=== PATIENT | female | born 1960 | race Caucasian/White ===

== ENCOUNTER 2023-07-17 02:02 | Emergency (ER) | payer BC, OTHER ==
--- NOTE | 2023-07-17 02:17 | ERPHSYRPT ---
- History of Present Illness Time Seen by Provider: 07/17/23 02:16 Source: patient, family Exam Limitations: no limitations Physician History: This is a 63-year-old white female patient who presents with bilateral leg cramping that began approximately 9 PM in the evening of 07/16/2023. Incidentally, she also notes that her blood sugar was measured approximately 444 and patient took additional subcutaneous insulin dose for sliding scale coverage. A repeat Accu-Chek at home measured the blood sugar level approximately 190 prior to arrival. She continues having the cramping and therefore she came to the emergency department with a family member. Her leg cramping has subsided just prior to arrival and even improved more while in the emergency department. Patient denies any type of trauma to her bilateral lower extremities. Patient has had this sensation in the past. She has never had it evaluated because of the symptoms being short-lived. However, this past evening the symptoms persisted longer than what she had experienced in the past. Patient was started on steroids to treat a bronchitis. Occurred: other (Last evening on 07/16/2023) Quality: cramping (Bilateral below the knee) Severity of Pain-Max: mild (To moderate) Severity of Pain-Current: none Lower Extremities Pain: other: bilateral (Below the knee) Modifying Factors: Improves With: other (Symptoms resolved on their own) Associated Symptoms: other (Cramping was present and interfering with her ability to walk) Allergies/Adverse Reactions: levofloxacin [From Levaquin] Allergy (Intermediate, Verified 07/17/23 02:14) Swelling of Joints Penicillins Allergy (Unknown, Verified 07/17/23 02:14) Rash Travel Risk - International Travel Have you traveled outside of the country in past 3 weeks: No - Emerging Infectious Disease Are you exhibiting symptoms associated with any current EIDs: No - Review of Systems Constitutional: No Symptoms Eyes: No Symptoms Ears, Nose, & Throat: No Symptoms Respiratory: No Symptoms Cardiac: No Symptoms Abdominal/Gastrointestinal: No Symptoms Genitourinary Symptoms: No Symptoms Musculoskeletal: Other (Cramping feeling bilateral lower extremities below the knee) Skin: No Symptoms Neurological: No Symptoms Psychological: No Symptoms Endocrine: No Symptoms Hematologic/Lymphatic: No Symptoms Immunological/Allergic: No Symptoms All Other Systems: Reviewed and Negative - Past Medical History Pertinent Past Medical History: Yes Endocrine Medical History: Diabetes Type I - Nursing Vital Signs Nursing Vital Signs: Initial Vital Signs Pulse Rate 83 07/17/23 02:13 Respiratory Rate 20 07/17/23 02:13 Blood Pressure 116/82 07/17/23 02:13 O2 Sat by Pulse Oximetry 97 07/17/23 02:13 Pain Scale Pain Intensity 2 - Physical Exam General Appearance: no apparent distress, alert, anxiety, obese Eyes, Ears, Nose, Throat Exam: normal ENT inspection, moist mucous membranes Neck Exam: normal inspection, non-tender, supple, full range of motion Cardiovascular/Respiratory Exam: chest non-tender, no respiratory distress Gastrointestinal/Abdominal Exam: non-tender Back Exam: normal inspection, normal range of motion, No CVA tenderness, No vertebral tenderness Hips Exam: bilateral: non-tender, normal inspection, normal range of motion, no evidence of injury Legs Exam: right leg: other (Bilateral lower extremities below the knee shows no evidence of infection. Currently no pain) Knees Exam: bilateral knee: non-tender, normal inspection, normal range of motion, no evidence of injury Ankle Exam: bilateral ankle: non-tender, normal inspection, normal range of motion, no evidence of injury Foot Exam: bilateral foot: non-tender, normal inspection, normal range of motion, no evidence of injury Neuro/Tendon Exam: normal sensation, normal motor functions, normal tendon functions, no evidence tendon injury Mental Status Exam: alert, oriented x 3, cooperative Skin Exam: normal color, warm, dry SpO2 Interpretation: normal O2 Delivery: Room Air - Course Nursing assessment & vital signs reviewed: Yes Ordered Tests: Active Orders 24 hr Category Date Time Status BMP Stat Lab 07/17/23 02:42 Completed CBC W DIFF Stat Lab 07/17/23 02:43 Completed D-DIMER QUANTITATIVE Stat Lab 07/17/23 02:42 Completed MAG [MAGNESIUM] Stat Lab 07/17/23 02:42 Completed Lab/Rad Data: Laboratory Result Diagrams 07/17/23 02:43 07/17/23 02:42 Laboratory Results 07/17/23 07/17/23 07/17/23 Range/Units 02:43 02:42 02:42 WBC 15.4 H (4.0-10.5) x10^3/uL RBC 4.73 (4.1-5.4) x10^6/uL Hgb 14.5 (12.0-16.0) g/dL Hct 42.2 (35-47) % MCV 89.2 (78-100) fL MCH 30.7 (26-32) pg MCHC 34.4 (32-36) g/dL RDW 13.5 (11.5-14.0) % Plt Count 284 (150-450) x10^3/uL MPV 10.9 (7.5-11.0) fL Gran % 63.2 (36.0-66.0) % Immature Gran % (Auto) 0.9 H (0.00-0.4) % Nucleat RBC Rel Count 0.0 (0.00-0.1) % Eos # (Auto) 0.15 (0-0.5) x10^3/uL Immature Gran # (Auto) 0.14 H (0.00-0.03) x10^3u/L Absolute Lymphs (auto) 4.04 (1.0-4.6) x10^3/uL Absolute Monos (auto) 1.27 (0.0-1.3) x10^3/uL Absolute Nucleated RBC 0.00 (0.00-0.01) x10^3u/L Lymphocytes % 26.3 (24.0-44.0) % Monocytes % 8.3 (0.0-12.0) % Eosinophils % 1.0 (0.00-5.0) % Basophils % 0.3 (0.0-0.4) % Absolute Granulocytes 9.73 H (1.4-6.9) x10^3/uL Basophils # 0.05 (0-0.4) x10^3/uL D-Dimer 0.38 (0.0-0.50) mg/L Sodium (135-145) mmol/L Potassium (3.5-5.1) mmol/L Chloride (98-107) mmol/L Carbon Dioxide (22-30) mmol/L Anion Gap (5-15) MEQ/L BUN (7-17) mg/dL Creatinine (0.52-1.04) mg/dL Estimated GFR ML/MIN Glucose (74-106) mg/dL Calcium (8.4-10.2) mg/dL Magnesium 1.7 (1.6-2.3) mg/dL 07/17/23 Range/Units 02:42 WBC (4.0-10.5) x10^3/uL RBC (4.1-5.4) x10^6/uL Hgb (12.0-16.0) g/dL Hct (35-47) % MCV (78-100) fL MCH (26-32) pg MCHC (32-36) g/dL RDW (11.5-14.0) % Plt Count (150-450) x10^3/uL MPV (7.5-11.0) fL Gran % (36.0-66.0) % Immature Gran % (Auto) (0.00-0.4) % Nucleat RBC Rel Count (0.00-0.1) % Eos # (Auto) (0-0.5) x10^3/uL Immature Gran # (Auto) (0.00-0.03) x10^3u/L Absolute Lymphs (auto) (1.0-4.6) x10^3/uL Absolute Monos (auto) (0.0-1.3) x10^3/uL Absolute Nucleated RBC (0.00-0.01) x10^3u/L Lymphocytes % (24.0-44.0) % Monocytes % (0.0-12.0) % Eosinophils % (0.00-5.0) % Basophils % (0.0-0.4) % Absolute Granulocytes (1.4-6.9) x10^3/uL Basophils # (0-0.4) x10^3/uL D-Dimer (0.0-0.50) mg/L Sodium 131 L (135-145) mmol/L Potassium 3.6 (3.5-5.1) mmol/L Chloride 95 L (98-107) mmol/L Carbon Dioxide 24 (22-30) mmol/L Anion Gap 15.5 H (5-15) MEQ/L BUN 39 H (7-17) mg/dL Creatinine 1.66 H (0.52-1.04) mg/dL Estimated GFR 34.0 ML/MIN Glucose 236 H (74-106) mg/dL Calcium 9.7 (8.4-10.2) mg/dL Magnesium (1.6-2.3) mg/dL - Progress Progress: improved, re-examined Progress Note: 07/17/23 02:45 My medical decision making and the assignment of low to moderate complexity to this patient's medical issues based on review of the patient's past medical history, review of the patient's medication list, review the patient's drug allergy list, history present illness and physical findings on examination. The workup in this patient includes D-dimer level, magnesium, BMP. Differential diagnosis includes DVT, electrolyte abnormalities. On examination this patient does not have any acute or emergent physical findings. There is no cellulitis. There is no evidence of any type of leg swelling or edema. Patient has palpable pedal pulses that are strong bilatera lly. Patient has full range of motion of her lower extremities. There is no evidence of any trauma to the bilateral lower extremities. 07/17/23 03:17 I interpreted the patient's laboratory data results. Patient has a leukocytosis. Likely this is secondary to her bronchitis and the use of steroid s. There are no other abnormalities in the patient's laboratory data results to suggest an acute, emergent medical issue. Counseled pt/family regarding: lab results, diagnosis, need for follow-up Medical Desision Making - Independent Historian Additional History obtained from: Family - Diagnostic Testing Diagnostic test were ordered, analyzed, and reviewed by me: Yes - Risk of complications The pt has a mod risk of morbidity or mortality based on: Need for prescription drug management - Departure Departure Disposition: Home Clinical Impression: Bilateral leg cramps Condition: Stable Critical Care Time: No Referrals: DOCTOR,NO FAMILY [Primary Care Provider] - Follow up/PCP as directed Additional Instructions: Take your medications as prescribed. Call your primary care provider tomorrow, 07/18/2023 to make arrangements for an outpatient appointment to be seen in the next 3 days for further evaluation and management. Prescriptions: Orphenadrine Citrate 100 mg [Norflex 100 MG Tablet] 100 mg PO BID #10 tab
[2023-07-17 02:31] VITALS: TEMP 97
[2023-07-17 02:47] LABS: Absolute Neutrophil Ct (ANC) 9.73 x10^3/uL (1.4-6.9); BASOPHIL % 0.3 % (0.0-0.4); Basophil (Absolute #) 0.05 x10^3/uL (0-0.4); Eosinophil (Absolute #) 0.15 x10^3/uL (0-0.5); Hematocrit 42.2 % (35-47); Hemoglobin 14.5 g/dL (12.0-16.0); IMMATURE GRAN # 0.14 x10^3u/L (0.00-0.03); IMMATURE GRAN % 0.9 % (0.00-0.4); Lymphocyte (Absolute #) 4.04 x10^3/uL (1.0-4.6); Lymphocytes % 26.3 % (24.0-44.0); Mean Cell Volume 89.2 fL (78-100); Mean Corpuscular Hemoglobin 30.7 pg (26-32); Mean Corpuscular Hgb Concent. 34.4 g/dL (32-36); Mean Platelet Volume 10.9 fL (7.5-11.0); Monocyte (Absolute #) 1.27 x10^3/uL (0.0-1.3); Monocytes % 8.3 % (0.0-12.0); Neutrophil % 63.2 % (36.0-66.0); Platelet Count 284 x10^3/uL (150-450); Red Blood Count 4.73 x10^6/uL (4.1-5.4); Red Cell Distribution Width 13.5 % (11.5-14.0); White Blood Count 15.4 x10^3/uL (4.0-10.5)
[2023-07-17 03:00] LABS: ANION GAP 15.5 MEQ/L (5-15); Calcium 9.7 mg/dL (8.4-10.2); Creatinine 1 1.66 mg/dL (0.52-1.04); Potassium 3.6 mmol/L (3.5-5.1)
[2023-07-17 03:06] VITALS: RESP 20
[2023-07-17] MEDS ORDERED: Norflex 60 MG/2 ML ONE (03:24)
[2023-07-17] MEDS: Norflex 60 MG/2 ML IM ONE (03:27)
[2023-07-17 03:58] VITALS: BP 99/72; PULSE 78; O2SAT 99
== END 2023-07-17 03:59 | disposition home or self-care (01) ==
LOC: ED 02:02
DX: R25.2 Cramp and spasm (principal); E10.9 Type 1 diabetes mellitus without complications
CPT/HCPCS: 36415; 80048; 83735; 85025; 85379; 96372; 99283; J2360